=== PATIENT | male | born 1985 | race African-American/Black ===

== ENCOUNTER 2016-12-24 18:24 | Emergency (ER) | payer SELFPAY ==
[~2016-12-24] VITALS: Ht 177.8 cm; Wt 170.0 kg
[2016-12-24] MEDS ORDERED: IBUPROFEN 600MG TABLET PO ONE (23:00)
[2016-12-24 23:58] VITALS: BP 132/71
== END 2016-12-25 00:25 | disposition home or self-care (01) ==
LOC: ER 22:00
DX: R05 Cough (principal)
CPT/HCPCS: 71010; 99283